=== PATIENT | male | born 1945 | race Caucasian/White ===

== ENCOUNTER 2019-06-15 12:21 | Observation (INO) | payer MEDICARE ==
[~2019-06-15] VITALS: Ht 180.3 cm; Wt 111.4 kg
[2019-06-15] MEDS ORDERED: LACTATED RINGERS 1,000 ML IV SCH (12:59)
[2019-06-15] MEDS ORDERED: ATRO10DR OP (13:03)
[2019-06-15] MEDS ORDERED: BENZ-17 PO (13:03)
[2019-06-15] MEDS ORDERED: ALBU90AE INH (13:03)
[2019-06-15] MEDS ORDERED: POTASSIUM CITRATE (13:09)
[2019-06-15] MEDS ORDERED: CALCIPOTRIENE (13:09)
[2019-06-15] MEDS ORDERED: FLUT1BLS12 INH (13:09)
[2019-06-15] MEDS ORDERED: LISI-170 PO (13:09)
[2019-06-15] MEDS ORDERED: CIPR500T87 PO (13:09)
[2019-06-15] MEDS ORDERED: GLUCOSAMINE (13:09)
[2019-06-15] MEDS ORDERED: FLUOROURACIL (13:09)
[2019-06-15] MEDS ORDERED: TAMS-11 PO (13:09)
[2019-06-15 13:10] VITALS: BP 157/93
[2019-06-15] MEDS ORDERED: GABAPENTIN 300 MG CAPSULE PO ONE (14:30)
[2019-06-15] MEDS ORDERED: ACETAMINOPHEN 500 MG TABLET PO ONE (14:30)
[2019-06-15] MEDS ORDERED: FENTANYL PF 100 MCG/2ML ONE ×2 (14:54→15:55)
[2019-06-15 15:01] LABS: ALBUMIN 3.7 g/dL (3.4-5.0); ANION GAP 10 mmol/L (5-15); CALCIUM 9.3 mg/dL (8.5-10.1); CHLORIDE 106 mmol/L (98-107)
[2019-06-15 15:05] LABS: ALANINE AMINOTRANSFERASE 19 U/L (12-78); ALKALINE PHOSPHATASE 90 U/L (45-117); BILIRUBIN,TOTAL 1.2 mg/dL (0.2-1.0); CREATININE 1.22 mg/dL (0.7-1.3); TOTAL PROTEIN 7.3 g/dL (6.4-8.2)
[2019-06-15] MEDS ORDERED: CIPROFLOXACIN/PMX 400MG/200ML 200 ML ONE (15:07)
[2019-06-15] MEDS ORDERED: HYDROmorphone 2 MG/ML, 1ML IVPush PRN (15:30)
[2019-06-15] MEDS ORDERED: MIDAZOLAM 1 MG/ML, 2ML IV PRN (15:30)
[2019-06-15] MEDS ORDERED: PROMETHAZINE 25 MG/ML, 1ML IV PRN (15:30)
[2019-06-15] MEDS ORDERED: METOPROLOL 1 MG/ML, 5ML IV PRN (15:30)
[2019-06-15] MEDS ORDERED: hydrALAzine 20 MG/ML, 1ML IV PRN (15:30)
[2019-06-15] MEDS ORDERED: ALBUTEROL/IPRATROPIUM 2.5MG/0.5MG, 3 ML NPPB PRN (15:30)
[2019-06-15] MEDS ORDERED: OXYcodone 5 MG/5 ML ORAL.SOL UDC PO PRN (15:30)
[2019-06-15] MEDS ORDERED: FENTANYL PF 100 MCG/2ML IV PRN (15:30)
[2019-06-15] MEDS ORDERED: PROPOFOL 10 MG/ML, 20ML ONE (17:38)
[2019-06-15] MEDS ORDERED: DEXAMETHASONE 4 MG/ML, 1ML ONE (17:38)
[2019-06-15] MEDS ORDERED: ONDANSETRON 2MG/ML, 2ML ONE (17:38)
[2019-06-15] MEDS ORDERED: OPIUM/BELLADONNA SUPP.RECT 16.2-60 MG PR PRN (19:00)
[2019-06-15] MEDS ORDERED: ONDANSETRON 2MG/ML, 2ML IV PRN (19:00)
[2019-06-15] MEDS ORDERED: OXYcodone/APAP 5/325MG TABLET PO PRN (19:00)
[2019-06-15] MEDS ORDERED: OPIUM/BELLADONNA SUPP.RECT 16.2-60 MG ONE (19:35)
[2019-06-15] MEDS: CIPROFLOXACIN 500 MG TABLET PO SCH (21:00)
[2019-06-15] MEDS ORDERED: ALBUTEROL HFA 90 MCG/SPRAY INH PRN (21:30)
[2019-06-16 00:17] VITALS: BP 123/62
[2019-06-16 04:00] VITALS: BP 115/65
[2019-06-16 07:55] VITALS: BP 107/54
[2019-06-16] MEDS: CIPROFLOXACIN 500 MG TABLET PO SCH (08:15)
[2019-06-16] MEDS ORDERED: SALMETEROL INH SCH (09:00)
[2019-06-16] MEDS ORDERED: TAMSULOSIN 0.4 MG CAP.ER.24H PO SCH (09:00)
[2019-06-16] MEDS ORDERED: BENZONATATE 100 MG CAPSULE PO SCH (09:00)
[2019-06-16] MEDS ORDERED: FLUTICASONE INH SCH (09:00)
[2019-06-16] MEDS ORDERED: LISINOPRIL 20 MG TABLET PO SCH (09:00)
== END 2019-06-16 13:45 | disposition home or self-care (01) ==
LOC: OUT 12:21 → ORIP 18:38 → 3WST 20:30
PROVIDERS: ADMIT Urology; ATTEND Urology
DX: N40.0 Benign prostatic hyperplasia without lower urinary tract symptoms (principal); N21.0 Calculus in bladder; Z87.891 Personal history of nicotine dependence; I10 Essential (primary) hypertension; N52.9 Male erectile dysfunction, unspecified; J45.909 Unspecified asthma, uncomplicated; E66.9 Obesity, unspecified; R32 Unspecified urinary incontinence
CPT/HCPCS: 36415; 52318; 52601; 80053; 82360; 88300; 88305; 93005; 94640; G0378; J0744; J1100; J2405; J2704; J3010; J7120; J7620

== ENCOUNTER 2019-11-15 10:05 | Observation (INO) | payer MEDICARE ==
[~2019-11-15] VITALS: Ht 182.9 cm; Wt 106.8 kg
[~2019-11-15 10:05] MED LIST: ALBU90AE INH; ATRO10DR OP; BENZ-17 PO; CALCIPOTRIENE; CIPR500T87 PO; FLUOROURACIL; FLUT1BLS12 INH; GLUCOSAMINE; LISI-170 PO; POTASSIUM CITRATE; TAMS-11 PO
--- NOTE | 2019-11-15 10:26 | NUR ---
PT BIB EMS FOR SOB UPON EXCERTION STARTING LAST AT ABOUT 2029. PT WENT TO THIS MORNING AND HAD AN ABNORMAL EKG. PT STATES HE STILL FEELS EXTEREMELY OB WHEN HE WALKS EVEN 5-10 FEET. PT IS RESTING IN [place]. CONNECTED TO MONITORING EQUIPMENT. MD IS BEDSIDE FOR ASSESSMENT.
--- NOTE | 2019-11-15 10:34 | NUR ---
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
[2019-11-15] MEDS ORDERED: SODIUM CHLORIDE FLUSH 10ML SYR IVF ONE (11:00)
--- NOTE | 2019-11-15 11:21 | NUR ---
PT RESTING IN RWHITMAN. NAD. VSS. IS BEDSIDE. AWAITING LAB AND TEST RESULT.S
[2019-11-15 11:41] LABS: BASOPHILS # (AUTO) 0.06 x10^3/uL (0-0.1); BASOPHILS % (AUTO) 1 % (0-1); EOSINOPHILS % (AUTO) 4 % (1-7); LYMPHOCYTES # (AUTO) 1.18 x10^3/uL (1-3.4); LYMPHOCYTES % (AUTO) 11 % (22-44); MD NO; MEAN CORPUSCULAR HGB CONC 33.3 g/dL (33.2-36.2); MEAN CORPUSCULAR VOLUME 98.9 fL (81-97); MEAN PLATELET VOLUME 8.2 fL (7.4-10.4); MONOCYTES # (AUTO) 1.03 x10^3/uL (0.2-0.8); MONOCYTES % (AUTO) 9 % (2-9); NEUTROPHILS # (AUTO) 8.27 x10^3/uL (1.8-6.8); NEUTROPHILS % (AUTO) 76 % (42-75); PLATELET COUNT 242 x10^3/uL (130-400); RED BLOOD COUNT 5.26 x10^6/uL (4.38-5.82); RED CELL DISTRIBUTION WIDTH 13.6 % (9.4-14.8)
[2019-11-15 11:43] LABS: ALBUMIN 3.7 g/dL (3.4-5.0); ANION GAP 8 mmol/L (5-15); CALCIUM 9.5 mg/dL (8.5-10.1); CHLORIDE 104 mmol/L (98-107)
[2019-11-15 11:49] LABS: ALANINE AMINOTRANSFERASE 25 U/L (12-78); ALKALINE PHOSPHATASE 101 U/L (45-117); BILIRUBIN,TOTAL 1.4 mg/dL (0.2-1.0); CREATININE 1.15 mg/dL (0.7-1.3); TOTAL PROTEIN 7.9 g/dL (6.4-8.2); TROPONIN I 0.025 ng/mL (0.000-0.045)
[2019-11-15] MEDS ORDERED: ALBUTEROL/IPRATROPIUM 2.5MG/0.5MG, 3 ML ONE (12:24)
[2019-11-15] MEDS ORDERED: ALBUTEROL/IPRATROPIUM 2.5MG/0.5MG, 3 ML NPPB ONE (12:30)
--- NOTE | 2019-11-15 12:30 | NUR ---
PT RECEIVEING BREATHING TX. TOLERATING IT WELL.
--- NOTE | 2019-11-15 13:12 | NUR ---
TOOK PT FOR A ROADTEST AROUND UNIT WITH CONTINOUS PULSE OX MONITORING. PT WAS SOB AND O2 SAT DROPPED TO HIGH 80S. PT RECOVERING IN BED AND HIS PULSE OX NOW READ 93%. PT HAD INCREASED WORK OF BREATHING DURING ROAD TEST.
[2019-11-15] MEDS ORDERED: ONDANSETRON 2MG/ML, 2ML IVPush PRN (15:00)
[2019-11-15] MEDS ORDERED: ATROPINE SULFATE OP SCH (15:00)
[2019-11-15] MEDS ORDERED: [UNRECOGNIZED DRUG - OTHER] OP SCH (15:00)
[2019-11-15] MEDS ORDERED: ACETAMINOPHEN 325 MG TABLET PO PRN (15:00)
[2019-11-15] MEDS ORDERED: ONDANSETRON ODT 4 MG PO PRN (15:00)
[2019-11-15] MEDS ORDERED: NACL 0.9% OP SCH (15:00)
[2019-11-15] MEDS ORDERED: ALBUTEROL HFA 90 MCG/SPRAY INH PRN (15:30)
[2019-11-15 15:37] VITALS: BP 169/85
[2019-11-15] MEDS: HEPARIN 5,000 UNITS/ML, 1ML SQ SCH ×2 (16:07→23:53)
[2019-11-15 17:42] LABS: TROPONIN I 0.015 ng/mL (0.000-0.045)
[2019-11-15] MEDS: CARVEDILOL 3.125 MG TABLET PO SCH (18:15)
[2019-11-15 18:46] VITALS: BP 161/73
[2019-11-15 23:50] LABS: TROPONIN I < 0.015 ng/mL (0.000-0.045)
[2019-11-16 01:52] VITALS: BP 136/85
[2019-11-16 05:40] VITALS: BP 134/91
[2019-11-16] MEDS: CARVEDILOL 3.125 MG TABLET PO SCH (05:40)
[2019-11-16 07:37] VITALS: BP 142/80
[2019-11-16] MEDS ORDERED: CARVEDILOL 6.25 MG TABLET PO SCH (08:00)
[2019-11-16] MEDS ORDERED: FUROSEMIDE 20 MG/2 ML IV ONE (08:00)
[2019-11-16 08:16] LABS: MEAN CORPUSCULAR HGB CONC 33.1 g/dL (33.2-36.2); MEAN CORPUSCULAR VOLUME 99.6 fL (81-97); MEAN PLATELET VOLUME 8.4 fL (7.4-10.4); PLATELET COUNT 253 x10^3/uL (130-400); RED BLOOD COUNT 4.89 x10^6/uL (4.38-5.82); RED CELL DISTRIBUTION WIDTH 13.6 % (9.4-14.8)
[2019-11-16] MEDS: HEPARIN 5,000 UNITS/ML, 1ML SQ SCH (08:52)
[2019-11-16] MEDS ORDERED: BENZONATATE 100 MG CAPSULE PO SCH (09:00)
[2019-11-16] MEDS ORDERED: TAMSULOSIN 0.4 MG CAP.ER.24H PO SCH (09:00)
[2019-11-16] MEDS ORDERED: MELATONIN 5 MG TABLET PO PRN (09:00)
[2019-11-16] MEDS ORDERED: FLUTICASONE/VILANTEROL 100-25MCG/INH INH SCH (09:00)
[2019-11-16] MEDS ORDERED: LISINOPRIL 20 MG TABLET PO SCH (09:00)
[2019-11-16 09:23] LABS: BASOPHILS % (AUTO) 0 % (0-1); EOSINOPHILS # (AUTO) 0.02 x10^3/uL (0-0.4); EOSINOPHILS % (AUTO) 0 % (1-7); LYMPHOCYTES # (AUTO) 1.05 x10^3/uL (1-3.4); LYMPHOCYTES % (AUTO) 8 % (22-44); MD SCAN; MONOCYTES # (AUTO) 0.62 x10^3/uL (0.2-0.8); MONOCYTES % (AUTO) 5 % (2-9); NEUTROPHILS # (AUTO) 10.76 x10^3/uL (1.8-6.8); NEUTROPHILS % (AUTO) 87 % (42-75)
[2019-11-16] MEDS ORDERED: CARV6.2512 PO (09:35)
[2019-11-16 14:09] VITALS: BP 125/63
== END 2019-11-16 15:34 | disposition home or self-care (01) ==
LOC: ED 11:49 → INTOOBSV 14:03 → EDIP 14:03 → 4NW 14:53 → 4NE 15:04
PROVIDERS: ADMIT Internal Medicine; ATTEND Internal Medicine
DX: J44.9 Chronic obstructive pulmonary disease, unspecified (principal); Z20.828 Contact with and (suspected) exposure to other viral communicable diseases; R06.00 Dyspnea, unspecified; E66.9 Obesity, unspecified; I10 Essential (primary) hypertension; N40.0 Benign prostatic hyperplasia without lower urinary tract symptoms; R09.02 Hypoxemia; R79.89 Other specified abnormal findings of blood chemistry; Z87.442 Personal history of urinary calculi; Z87.891 Personal history of nicotine dependence; Z79.899 Other long term (current) drug therapy; Z79.51 Long term (current) use of inhaled steroids
CPT/HCPCS: 36415; 71045; 80053; 83605; 83880; 84145; 84484; 85025; 85379; 87040; 93005; 93308; 93321; 93325; 96372; 96374; 99285; G0378; J1644; J1940; J7512; U0001